=== PATIENT | male | born 1970 | race Caucasian/White ===

== ENCOUNTER 2021-10-24 10:29 | Inpatient (IN) | payer SELFPAY ==
[2021-10-24] MEDS ORDERED: Enoxaparin Sodium 80 MG/0.8 ML SYRINGE ONE (12:16)
[2021-10-24 12:38] LABS: CKMB 14.4 ng/mL (0-6.6)
[2021-10-24] MEDS ORDERED: Ondansetron PF 4 MG/2 ML Vial IVP PRN (13:43)
[2021-10-24] MEDS ORDERED: Ondansetron ODT 4 MG TAB PO PRN (13:43)
[2021-10-24] MEDS ORDERED: Electrolyte Replacement Protocol 1 EACH FS SCH (13:45)
[2021-10-24] MEDS ORDERED: Magnesium 2 GM/50 ML 2 GM in Premix Bag 1 BAG IVPB SCH (14:00)
[2021-10-24] MEDS ORDERED: Electrolyte Replacement Protocol FS PRN (14:00)
[2021-10-24 14:48] LABS: Troponin I 2.577 ng/mL (< 0.028)
[2021-10-24 16:43] VITALS: BMI 27.6
[2021-10-24 18:03] LABS: Troponin I 3.552 ng/mL (< 0.028)
[2021-10-24] MEDS ORDERED: Communication Order-Pharmacy FS SCH (19:15)
[2021-10-24] MEDS: Nitroglycerin 2% Ointment 1 INCH/1 GM Packet TOP SCH (21:24)
[2021-10-25] MEDS ORDERED: Sodium Chloride 0.9% 1,000 ML IV SCH (00:01)
[2021-10-25 04:15] LABS: Hemoglobin A1c 5.7 % (4.0-6.0)
[2021-10-25 04:27] LABS: #Basophils 0.1 thou/uL (0.0-0.2); #Eosinphils 0.2 thou/uL (0.0-0.7); #Lymphocytes 2.2 thou/uL (1.20-3.40); #Monocytes 0.6 thou/uL (0.11-0.59); %Basophils 1.4 % (0.0-1.0); %Eosinophils 3.9 % (0.0-10.0); %Lymphocytes 35.2 % (21.0-51.0); %Monocytes 10.4 % (0.0-10.0); %Neutrophils 49.1 % (42.0-75.0); Hemoglobin 12.5 g/dL (14.0-18.0); Mean Corpuscular HGB CONC 32.2 g/dL (32.0-36.0); Mean Corpuscular Hemoglobin 30.8 pg (27.0-31.0); Mean Corpuscular Volume 95.8 fL (78.0-98.0); Mean Platelet Volume 8.2 fL (7.4-10.4); Platelet Count 235 thou/uL (130-400); RBC Distribution Width 16.9 % (11.5-14.5); Red Blood Cell (RBC) Count 4.06 mill/uL (4.70-6.10); White Blood Cell (WBC) Count 6.1 thou/uL (4.8-10.8)
[2021-10-25 04:35] LABS: Anion Gap 16 mmol/L (10-20); BUN (Urea Nitrogen) 17 mg/dL (8.4-25.7); Calc. Creatinine Clearance 65 mL/min (70-130); Calcium 8.7 mg/dL (7.8-10.44); Carbon Dioxide 23 mmol/L (22-29); Cardiac Risk 4.5 (Less than 4.5); Chloride 100 mmol/L (98-107); Cholesterol 116 mg/dl (< 200 Desired); Glucose 99 mg/dL (70-105); HDL Cholesterol 26 mg/dL (>60 Neg Risk); LDL Cholesterol, Calculated 78 mg/dL; Magnesium 1.9 mg/dL (1.6-2.6); Potassium 3.9 mmol/L (3.5-5.1); Sodium 135 mmol/L (136-145); Triglycerides 62 mg/dL (Less than 150)
[2021-10-25] MEDS: Acetaminophen 325 MG TAB PO PRN ×2 (04:40→21:50)
[2021-10-25 05:01] LABS: CKMB 14.9 ng/mL (0-6.6)
[2021-10-25] MEDS: Aspirin 81 mg Enteric Coated Tablet PO SCH (05:41)
[2021-10-25] MEDS: Carvedilol 6.25 MG TAB PO SCH ×2 (05:41→17:11)
[2021-10-25] MEDS ORDERED: Magnesium 2 GM/50 ML 2 GM in Premix Bag 1 BAG IVPB SCH (07:00)
[2021-10-25] MEDS ORDERED: Labetalol HCl 100 MG/20 ML VIAL SLOW IVP PRN (07:46)
[2021-10-25] MEDS ORDERED: Furosemide 40 MG/4 ML VIAL SLOW IVP SCH (09:00)
[2021-10-25] MEDS: Nitroglycerin 2% Ointment 1 INCH/1 GM Packet TOP SCH ×2 (09:38→21:47)
[2021-10-25] MEDS ORDERED: Midazolam HCl 2 mg/2 ml Vial ONE (10:42)
[2021-10-25] MEDS ORDERED: Fentanyl 100 MCG/2 ML VIAL ONE (10:42)
[2021-10-25] MEDS ORDERED: Heparin 10,000 UNITS/ 10 ML VIAL ONE (11:00)
[2021-10-25] MEDS ORDERED: Sodium Chloride 0.9% 200 ML IV PRN (12:23)
[2021-10-25] MEDS ORDERED: Sodium Chloride 0.9% 250 ML IV SCH (12:30)
[2021-10-25] MEDS: Furosemide 40 MG/4 ML VIAL SLOW IVP SCH (13:58)
[2021-10-25] MEDS: Enoxaparin Sodium 80 MG/0.8 ML SYRINGE SC SCH (21:47)
[2021-10-26 04:33] LABS: #Basophils 0.1 thou/uL (0.0-0.2); #Eosinphils 0.3 thou/uL (0.0-0.7); #Lymphocytes 2.1 thou/uL (1.20-3.40); #Monocytes 0.6 thou/uL (0.11-0.59); #Neutrophils 3.6 thou/uL (1.40-6.50); %Basophils 1.1 % (0.0-1.0); %Lymphocytes 30.9 % (21.0-51.0); Hemoglobin 13.1 g/dL (14.0-18.0); Mean Corpuscular HGB CONC 33.5 g/dL (32.0-36.0); Mean Corpuscular Hemoglobin 31.8 pg (27.0-31.0); Mean Corpuscular Volume 94.8 fL (78.0-98.0); Mean Platelet Volume 7.9 fL (7.4-10.4); Platelet Count 239 thou/uL (130-400); RBC Distribution Width 16.5 % (11.5-14.5); Red Blood Cell (RBC) Count 4.13 mill/uL (4.70-6.10); White Blood Cell (WBC) Count 6.7 thou/uL (4.8-10.8)
[2021-10-26 04:57] LABS: Anion Gap 11 mmol/L (10-20); BUN (Urea Nitrogen) 20 mg/dL (8.4-25.7); Calc. Creatinine Clearance 61 mL/min (70-130); Calcium 8.5 mg/dL (7.8-10.44); Carbon Dioxide 27 mmol/L (22-29); Chloride 99 mmol/L (98-107); Glucose 101 mg/dL (70-105); Magnesium 1.9 mg/dL (1.6-2.6); Potassium 3.9 mmol/L (3.5-5.1); Sodium 133 mmol/L (136-145)
[2021-10-26] MEDS ORDERED: Magnesium 2 GM/50 ML 2 GM in Premix Bag 1 BAG IVPB SCH (05:15)
[2021-10-26] MEDS: Furosemide 40 MG/4 ML VIAL SLOW IVP SCH (05:20)
[2021-10-26] MEDS: Nitroglycerin 2% Ointment 1 INCH/1 GM Packet TOP SCH ×2 (08:44→08:54)
[2021-10-26] MEDS: Carvedilol 6.25 MG TAB PO SCH ×2 (08:44→16:16)
[2021-10-26] MEDS: Aspirin 81 mg Enteric Coated Tablet PO SCH (08:44)
[2021-10-26] MEDS: Enoxaparin Sodium 80 MG/0.8 ML SYRINGE SC SCH ×2 (08:45→20:35)
[2021-10-26] MEDS: Nitroglycerin 0.4 MG TAB (25 Tab Bottle) SL PRN ×2 (20:24→20:34)
[2021-10-27 05:21] LABS: BUN (Urea Nitrogen) 17 mg/dL (8.4-25.7); Calc. Creatinine Clearance 59 mL/min (70-130); Calcium 8.2 mg/dL (7.8-10.44); Chloride 101 mmol/L (98-107); Glucose 91 mg/dL (70-105); Magnesium 1.9 mg/dL (1.6-2.6); Potassium 4.1 mmol/L (3.5-5.1); Sodium 136 mmol/L (136-145)
[2021-10-27] MEDS ORDERED: Magnesium 2 GM/50 ML 2 GM in Premix Bag 1 BAG IVPB SCH (05:45)
[2021-10-27] MEDS: Carvedilol 6.25 MG TAB PO SCH ×2 (09:16→16:08)
[2021-10-27] MEDS: Enoxaparin Sodium 80 MG/0.8 ML SYRINGE SC SCH (09:16)
[2021-10-27] MEDS: Aspirin 81 mg Enteric Coated Tablet PO SCH (09:16)
[2021-10-27] MEDS: Furosemide 40 MG/4 ML VIAL SLOW IVP SCH (09:17)
[2021-10-27] MEDS: Apixaban 5 MG TAB PO SCH (20:47)
[2021-10-28 04:06] LABS: #Basophils 0.1 thou/uL (0.0-0.2); #Eosinphils 0.5 thou/uL (0.0-0.7); #Lymphocytes 1.9 thou/uL (1.20-3.40); #Monocytes 0.9 thou/uL (0.11-0.59); #Neutrophils 3.5 thou/uL (1.40-6.50); %Basophils 1.6 % (0.0-1.0); %Eosinophils 6.9 % (0.0-10.0); %Lymphocytes 27.4 % (21.0-51.0); %Monocytes 13.4 % (0.0-10.0); %Neutrophils 50.8 % (42.0-75.0); Hemoglobin 13.9 g/dL (14.0-18.0); Mean Corpuscular HGB CONC 32.2 g/dL (32.0-36.0); Mean Corpuscular Hemoglobin 30.9 pg (27.0-31.0); Mean Corpuscular Volume 95.9 fL (78.0-98.0); Mean Platelet Volume 7.9 fL (7.4-10.4); Platelet Count 269 thou/uL (130-400); RBC Distribution Width 16.8 % (11.5-14.5); White Blood Cell (WBC) Count 6.9 thou/uL (4.8-10.8)
[2021-10-28 04:36] LABS: BUN (Urea Nitrogen) 17 mg/dL (8.4-25.7); Calc. Creatinine Clearance 63 mL/min (70-130); Calcium 8.5 mg/dL (7.8-10.44); Chloride 102 mmol/L (98-107); Glucose 95 mg/dL (70-105); Potassium 4.1 mmol/L (3.5-5.1); Sodium 137 mmol/L (136-145)
[2021-10-28] MEDS ORDERED: Magnesium 2 GM/50 ML 2 GM in Premix Bag 1 BAG IVPB SCH (06:00)
[2021-10-28] MEDS: Carvedilol 6.25 MG TAB PO SCH (09:36)
[2021-10-28] MEDS: Aspirin 81 mg Enteric Coated Tablet PO SCH (09:36)
[2021-10-28] MEDS: Apixaban 5 MG TAB PO SCH (09:36)
[2021-10-28] MEDS: Furosemide 40 MG/4 ML VIAL SLOW IVP SCH (09:37)
[2021-10-28 12:18] VITALS: BP 109/65; TEMP 97.8
[2021-10-28 13:23] LABS: Anion Gap 16 mmol/L (10-20); BUN (Urea Nitrogen) 16 mg/dL (8.4-25.7); Calc. Creatinine Clearance 58 mL/min (70-130); Carbon Dioxide 23 mmol/L (22-29); Chloride 103 mmol/L (98-107); Glucose 107 mg/dL (70-105); Potassium 4.1 mmol/L (3.5-5.1); Sodium 138 mmol/L (136-145)
[2021-10-28 16:27] LABS: Anion Gap 15 mmol/L (10-20); Carbon Dioxide 24 mmol/L (22-29)
[2021-10-28 16:29] LABS: Carbon Dioxide 25 mmol/L (22-29)
[2021-10-28 16:30] LABS: Anion Gap 14 mmol/L (10-20)
== END 2021-10-28 14:40 | disposition left against medical advice (07) | DRG 280 ==
LOC: ERS 10:29 → 2NO 13:04
PROVIDERS: ADMIT Internal Medicine; ATTEND Internal Medicine
PROC: 4A023N7 Measurement of Cardiac Sampling and Pressure, Left Heart, Percutaneous Approach (ICD-10-PCS; principal; 2021-10-25)
PROC: B2111ZZ Fluoroscopy of Multiple Coronary Arteries using Low Osmolar Contrast (ICD-10-PCS; 2021-10-25)
DX: I21.4 Non-ST elevation (NSTEMI) myocardial infarction (principal); I50.23 Acute on chronic systolic (congestive) heart failure; Z20.822 Contact with and (suspected) exposure to COVID-19; I47.2 Ventricular tachycardia; I13.0 Hypertensive heart and chronic kidney disease with heart failure and stage 1 through stage 4 chronic kidney disease, or unspecified chronic kidney disease; E87.1 Hypo-osmolality and hyponatremia; I42.0 Dilated cardiomyopathy; N17.9 Acute kidney failure, unspecified; E83.42 Hypomagnesemia; F14.10 Cocaine abuse, uncomplicated; D53.9 Nutritional anemia, unspecified; N18.30 Chronic kidney disease, stage 3 unspecified; F12.10 Cannabis abuse, uncomplicated; I08.3 Combined rheumatic disorders of mitral, aortic and tricuspid valves; G89.29 Other chronic pain; M54.9 Dorsalgia, unspecified; Z82.49 Family history of ischemic heart disease and other diseases of the circulatory system; Z83.3 Family history of diabetes mellitus; Z87.891 Personal history of nicotine dependence; Z79.82 Long term (current) use of aspirin
CPT/HCPCS: 36251; 36415; 80048; 80061; 82553; 83036; 83735; 84443; 84484; 85025; 93005; 93306; 93798; 96372; 99152; J1644; J1650; J1940; J2250; J3010; J3475; J7030; J7050